=== PATIENT | male | born 1960 ===

== ENCOUNTER 2024-02-04 19:58 | Emergency (ER) | payer MEDICARE, SELFPAY ==
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
[2024-02-04 20:07] VITALS: BP 151/97; PULSE 92; RESP 16; TEMP 36.9; O2SAT 96
[2024-02-04 20:12] VITALS: BP 151/97; PULSE 92; RESP 16; TEMP 36.9; O2SAT 96
== END 2024-02-04 20:16 | disposition home or self-care (01) ==
PROVIDERS: Emergency Provider Nurse Practitioner
DX: Z76.0 Encounter for issue of repeat prescription (principal); G40.909 Epilepsy, unspecified, not intractable, without status epilepticus
CPT/HCPCS: 99202; G0463

== ENCOUNTER 2024-04-30 16:24 | Outpatient (RCR) | payer MEDICARE, SELFPAY ==
[2024-04-30 17:42] LABS: INR 2.1; Prothrombin Time 24.1 Seconds (11.1-14.7)
== END 2024-07-29 23:59 | disposition home or self-care (01) ==
LOC: ANHLAB 16:24
PROVIDERS: Visit Provider Family Medicine
DX: I48.91 Unspecified atrial fibrillation (principal); D68.9 Coagulation defect, unspecified
CPT/HCPCS: 36415; 85610